=== PATIENT | male | born 2000 | race African-American/Black ===

== ENCOUNTER 2021-05-08 15:49 | Emergency (ER) | payer OTHER ==
[~2021-05-08] VITALS: Ht 172.7 cm; Wt 81.6 kg
[2021-05-08 16:00] VITALS: BP 132/64; TEMP 98.1
== END 2021-05-08 18:09 | disposition home or self-care (01) ==
LOC: ED 15:49
DX: S30.0XXA Contusion of lower back and pelvis, initial encounter (principal); S63.591A Other specified sprain of right wrist, initial encounter; W01.0XXA Fall on same level from slipping, tripping and stumbling without subsequent striking against object, initial encounter; Y92.89 Other specified places as the place of occurrence of the external cause
CPT/HCPCS: 96372; 99283; J1885